=== PATIENT | female | born 1935 | race Caucasian/White ===

== ENCOUNTER 2018-01-30 09:40 | Outpatient (CLI) | payer MEDICARE, SELFPAY ==
[2018-01-30 13:03] LABS: HCT 38.8 % (36.0-46.0); HGB 12.5 g/dL (12.0-15.5); Mean Corp. HGB Concentration 32.2 g/dL (32.0-36.0); Mean Corpuscular Hemoglobin 29.9 pg (27.0-33.0); Mean Corpuscular Volume 92.8 fL (80-95); Mean Platelet Volume 10.3 fL (8.0-11.0); Platelet Count 310 x1000/uL (130-400); RBC 4.18 m/cumm (4.00-5.20); RBC Distribution Width 13.1 % (11.7-14.6); White Blood Cell Count 7.07 k/cumm (4.4-10.8)
[2018-01-30 14:00] LABS: ALT 26 U/L (12-78); AST 26 U/L (15-37); Albumin 3.5 g/dL (3.4-5.0); Alkaline Phosphatase 76 U/L (46-116); Anion Gap 6.8 mmol/L (3-11); BUN 14 mg/dL (7-18); Bilirubin, Total 0.4 mg/dL (0.2-1.0); CO2 30.2 mmol/L (21.0-32.0); CREATININE 0.77 mg/dL (0.55-1.02); Calcium 9.1 mg/dL (8.5-10.1); Chloride 101 mmol/L (98-107); Glucose 91 mg/dL (70-100); Potassium 4.5 mmol/L (3.5-5.1); Sodium 138 mmol/L (136-145); TSH (W/Ref FT4) 3.14 uIU/mL (0.358-3.74); Total Protein 6.7 g/dL (6.4-8.2); Vitamin B12 399 pg/mL (193-986)
[2018-01-31 13:58] LABS: Syphilis Serology (RPR) Negative (Negative)
== END 2018-01-30 10:00 ==
PROVIDERS: PCP Family Medicine; Visit Provider Family Medicine
DX: F32.9 Major depressive disorder, single episode, unspecified (principal); I10 Essential (primary) hypertension; R41.3 Other amnesia; G47.00 Insomnia, unspecified; E03.9 Hypothyroidism, unspecified
CPT/HCPCS: 36415; 80053; 85027; 82607; 84443; 86592

== ENCOUNTER 2018-07-21 10:12 | Day surgery (SDC) | payer MEDICARE, SELFPAY ==
--- NOTE | 2018-07-20 18:15 | POEE_ITS ---
History of Present Illness Chief Complaint: Progressive decreased vision, left eye Narrative: The patient is an 83-year-old lady with history of pseudoexfoliation and cataracts. She has previously undergone cataract surgery in the right eye in 2013. Postoperatively, she has regained uncorrected visual acuity of 20/25 in the right eye. She has previously undergone YAG laser capsulotomy with anterior capsule relaxing incisions in the right eye. She has now developed a moderate nuclear and cortical cataract in the left eye with visual acuity of 20/40. She now presents for cataract surgery in the left eye. NOTE: The Chief Complaint, HPI, Past Medical History, Past Surgical History, Family History, Social History, Medications, and complete Ophthalmic Exam with detailed Assessment and Plan have already been documented in the patient's outpatient ophthalmic record and are not covered again in detail here. [facility] Surgical History H/O arthroscopy of knee (Resolved) H/O cataract removal with insertion of prosthetic lens (Resolved) Arthroplasty of knee (02/21/09) Colonoscopy - IV Sedation (10/31/16) Colonoscopy - MAC (07/03/11) Extraction of cataract Family History Mother Stroke Heart disease Father No problems noted. Sister Cancer Sister Lung cancer Maternal Grandmother Stroke Son No problems noted. Son No problems noted. Social History Smoking/Tobacco Use Status: Former Tobacco Use Second Hand Exposure: No Alcohol Intake: never Drug use: Never Substance use type: does not use Household members: spouse What type of physical activity do you participate in: bicycling Duration: decline to answer Frequency: decline to answer Anh/Sikh: Zoroastrianism Special anh needs: No Seatbelt use: always Meds Home Medications Medication Instructions Recorded Confirmed Type Flexable Maximum Strength Cap 1 cap PO BID 07/24/12 07/16/18 History escitalopram oxalate [Lexapro] 10 mg PO DAILY #90 tab-cap 07/08/17 07/16/18 Rx levothyroxine 50 mcg PO DAILY #90 tab-cap 08/12/17 07/16/18 Rx losartan-hydrochlorothiazide 0.5 tab-cap PO DAILY #90 tab-cap 08/12/17 07/16/18 Rx donepezil 10 mg tablet 10 mg PO DAILY #30 tab 12/24/17 07/16/18 Rx estradiol 0.01% (0.1 mg/gram) 42.5 gm VG twice weekly PRN tube 12/24/17 07/16/18 History vaginal cream Allergies Allergy/AdvReac Type Severity Reaction Status Date / Time No Known Allergies Allergy Unverified 07/16/18 10:55 Exam OCULAR EXAM:: Most recent ocular examination is significant for best corrected visual acuity of 20/20 OD, 20/40 OS. Intraocular pressure is 17 OD, 16 OS. Extraocular motility is normal. Slit-lamp exam shows the right pupil dilating to 4 mm with severe iridodonesis. There is a PCIOL in the right eye, shifted slightly inferiorly. The posterior capsule is open with some anterior capsular contraction with relaxing incisions. In the left eye the pupil dilates to 5 mm with a 2+ nuclear and 1+ cortical cataract. 1+ pseudoexfoliation is present OS. Dilated funduscopic examination reveals disc cupping of 0.7 OD 0.3 OS with good color. The optic nerves have good perfusion and normal color. The retinal vasculature is normal without significant tortuosity or abnormality. The mac ulas are normal in appearance with normal contour and foveal reflex appropriate for age. The peripheral retina and vitreous are normal. BRIGHTNESS ACUITY TESTING (BAT):: Brightness acuity testing of the left eye off is 20/40. Low is 20/40. Medium is 20/40. High is 20/50. Assessment and Plan (1) Nuclear sclerotic cataract of left eye: Current visit: No Status: Acute Assessment: Visually significant cataract, left eye. Plan: Cataract extraction with intraocular lens implantation, left eye (2) Cortical cataract of left eye: Current visit: No Status: Acute Assessment: Visually significant cataract, left eye. Plan: Cataract extraction with intraocular lens implantation, left eye Note: NOTE:: The details of the planned surgery, including the risks, indications,limitations,expectations,outcome and possible complications were explained to the patient. The patient understands the complications including, but not limited to: infection, hemorrhage, posterior dislocation of the lens or nuclear fragments which may require the intervention of a vitreoretinal surgeon, possible loss of the eye, or from anesthetic complications. The patient has been made aware of the option of not having surgery, that vision following surgery may not be equal to that prior to surgery, and that the planned surgery may not achieve the intended results. Following this discussion, which the patient appeared to understand, the patient wishes to proceed with cataract surgery with lens implantation of the affected eye to improve and maximize vision.
[2018-07-21 10:38] VITALS: BP 151/73; PULSE 56; RESP 16; TEMP 36.4; O2SAT 96
[2018-07-21] MEDS: Tetracaine 0.5% 4 ML BTL OS ×4 (10:49→12:44)
[2018-07-21] MEDS: Tropicam./Phenyleph. (1/2.5%) 5 ML BTL OS ×3 (10:50→10:59)
--- NOTE | 2018-07-21 12:27 | W.PM.DSUDISC ---
Discharge Plan Disposition Patient Disposition: HOME Condition: Stable Discharge Details Attending Provider: Andrzej Jiménez Primary Care Provider: Nicki Caban Home Meds and New Rx's Prescriptions: No Action estradiol [Estrace] 0.01 % (0.1 mg/gram) cream 42.5 gm VG twice weekly PRNRF: 0 donepezil 10 mg tablet 10 mg PO DAILY Qty: 30 RF: 6 FLEXABLE MAXIMUM STRENGTH CAP 1 EACH capsule 1 cap PO BID RF: 0 escitalopram oxalate [Lexapro] 10 MG tablet 10 mg PO DAILY Qty: 90 RF: 11 levothyroxine 50 MCG tablet 50 mcg PO DAILY Qty: 90 RF: 12 losartan-hydrochlorothiazide 1 EACH tablet 0.5 tab-cap PO DAILY Qty: 90 RF: 12 cholecalciferol (vitamin D3) [Vitamin D3] 1,000 unit Capsule RF: 0 Discharge Instructions Stand Alone Forms: Post-op Topical Cataract, Press Ganey (DSU) Discharge Orders Discharge Orders: Discharge Order (Routine); Ordered 07/21/18 Ordered By: Andrzej Jiménez DS: Diagnosis Discharge Diagnosis (1) Nuclear sclerotic cataract of left eye: Status: Resolved (2) Cortical cataract of left eye: Status: Resolved (3) Status post cataract extraction and insertion of intraocular lens of left eye: Status: Chronic
--- NOTE | 2018-07-21 12:28 | W.PM.OP ---
Date of service: 07/21/18 Time of Service: 12:28 Operative Note PRE-OP DIAGNOSIS: Cataract, left eye, with poorly dilating pupil POST-OP DIAGNOSIS: same PROCEDURE: Cataract extraction by phacoemulsification with intraocular lens implantation, left eye, with pupillary expansion device SURGEON: Andrzej Jiménez ANESTHESIA: MAC and local (sub-tenon's anesthetic infiltration) ESTIMATED BLOOD LOSS: 0 PATHOLOGY: none sent COMPLICATIONS: None Patient was transported to: same day Patient's condition: stable Implants: [employer] / [employer] Tecnis [id number] Indications: Progressive decreased vision, left eye Procedure Description: CATARACT SURGERY OPERATIVE REPORT PREOPERATIVE DIAGNOSIS: 1. Nuclear/cortical cataract, left eye, with pseudoexfoliation 2. Poorly dilating pupil, left eye POSTOPERATIVE DIAGNOSIS: Same OPERATION: 1. Cataract extraction using phacoemulsification with posterior chamber intraocular lens implant, left eye. 2. Pupillary dilation and iris stabilization using Malyugin Ring IOL; IOL Glove Tagger/Model: [employer] / LILIANA Tecnis [id number] IOL Power: + 21.50 diopters IOL Serial Number: [id number] Optic Diameter: 6.0 mm Haptic/Overall Diameter: 13.00 mm PHACO INFO: Abdelrahman Centurion Vision System with OZil and Active Fluidics Cumulative Dispersed Energy (CDE): 10.45 seconds SURGEON: Andrzej Jiménez MD, GERALD ANESTHESIA: Monitored Anesthesia Care (MAC), with local sub-tenon's anesthetic infiltration COMPLICATIONS: None SPECIMENS: None INDICATIONS FOR PROCEDURE: The patient is an 83-year-old lady with history of pseudoexfoliation, right eye greater than left who has previously undergone cataract surgery in her right eye in 2013. She now presents with symptomatic nuclear and cortical cataract in the left eye. PROCEDURE: The correct surgical eye was identified and marked as the left eye and the pupil was dilated in the preoperative area using mydriatics, cycloplegics, and NSAIDS (except in aspirin allergic patients). The dilated pupil size was 4.5 mm. No sedation was used. The patient was brought to the operating room where cardiopulmonary monitoring was instituted and surgical time-out was performed, confirming the correct operative eye and IOL power. Topical anesthesia was administered and ophthalmic povidone-iodine 5% was instilled into the conjunctival fornices. Lidocaine gel was applied to the cornea and the jeff-ocular area was prepped with Betadine 10% solution and draped in the usual sterile fashion for intraocular surgery, including an aperture drape. A Tegaderm transparent film dressing was cut in half and used to cover the lashes and lid margins. Care was taken to sequester the lashes and lid margins under the Tegaderm dressing. A lid speculum was placed between the lids of the operative eye and the Ellie-Davon operating microscope was maneuvered into position. Renita scissors were then used to make a conjunctival buttonhole approximately 6mm posterior to the limbus in the inferonasal quadrant. Blunt dissection was carried out to expose bare sclera, and a blunt-tipped sub-tenon?s anesthesia cannula was introduced and passed posteriorly along the globe where non-preserved plain lidocaine was injected into posterior sub-Tenon?s space. A sideport knife was used to make a paracentesis port superiorly/superiortemporally. The anterior chamber was filled with Healon GV. A 2.4mm keratome knife was used to create a half-thickness groove at the limbus and then to construct a three-plane near-clear corneal tunnel extending 2.0mm into clear cornea at the temporal position. A 7.0 mm Malyugin Ring was then inserted into the pupillary space and engaged with the Kuglen hook. A flap was raised on the anterior capsule and capsulorhexis forceps were used to complete a continuous curvilinear capsulorhexis of 5.0 mm. Capsulorhexis was challenging, as the patient's eye moved constantly, even while fixating with a second instrument. Balanced salt solution was then used to perform cortical cleaving hydrodissection and nuclear hydrodelineation until the lens could be freely rotated within the capsular bag. The lens nucleus was then disassembled and removed within the capsular bag and iris plane using phacoemulsification. Residual cortical material was removed using the 45-degree angled silicone I/A tip with 0.3mm port. The posterior capsule was carefully polished to remove as much residual lens epithelial cells as safely possible. The underside of the anterior capsule was polished as well to remove as many lens epithelial cells as possible, to reduce the chance of capsular phimosis. The capsular bag was then inflated and the anterior chamber deepened with viscoelastic. The lens implant described above was inserted into the capsular bag using the LILIANA [place] [employer] [place] Injector. A Kuglen hook was used to dial the IOL into position. The Malyugin Ring was removed in the reverse order of its insertion. Residual viscoelastic was then removed first from posterior to the IOL, then from the anterior chamber using the I/A handpiece. The lens implant was noted to center nicely within the capsular bag. The incisions were stromally hydrated, and the anterior chamber was reformed using BSS. Then 0.4cc of moxifloxacin 1.5mg/ml were injected into the capsular bag and anterior chamber. The incisions were checked with a Weck spear and found to be secure. Several drops of ophthalmic povidone-iodine 5% were then applied to the eye followed by two drops of Imprimis combination gatifloxacin/dexamethasone solution. The drapes were removed and a clear plastic protective eye shield was placed over the eye. The patient was then returned to [facility] in stable condition.
[2018-07-21] MEDS: Povidone-Iodine Ophth 30 ML BTL (12:44)
[2018-07-21] MEDS: Lidocaine 2% Jelly 6 ML SYR (12:44)
[2018-07-21] MEDS: Balanced Salt Soln.-PLUS 500 ML BAG (12:49)
[2018-07-21] MEDS: Lidocaine 1% Pres-Free 5 ML VIAL (12:50)
== END 2018-07-21 13:50 | disposition home or self-care (01) ==
PROVIDERS: PCP Family Medicine; Visit Provider Ophthalmology
PROC: (CPT 66982; principal; 2018-07-21 13:30)
DX: H25.812 Combined forms of age-related cataract, left eye (principal); H57.09 Other anomalies of pupillary function; I10 Essential (primary) hypertension
CPT/HCPCS: 66982; V2632

== ENCOUNTER 2018-12-04 00:59 | Outpatient (CLI) | payer MEDICARE, SELFPAY ==
[2018-12-04 10:45] LABS: ALT 19 U/L (14-59); AST 20 U/L (15-37); Albumin 3.4 g/dL (3.4-5.0); Alkaline Phosphatase 83 U/L (46-116); Anion Gap 8.4 mmol/L (3-11); BUN 13 mg/dL (7-18); Bilirubin, Total 0.4 mg/dL (0.2-1.0); CO2 29.6 mmol/L (21.0-32.0); CREATININE 0.78 mg/dL (0.55-1.02); Calcium 9.1 mg/dL (8.5-10.1); Chloride 101 mmol/L (98-107); Glucose 90 mg/dL (70-100); Potassium 4.7 mmol/L (3.5-5.1); Sodium 139 mmol/L (136-145); TSH (W/Ref FT4) 8.31 uIU/mL (0.36-3.74); Total Protein 6.7 g/dL (6.4-8.2)
[2018-12-04 11:18] LABS: FREE T4 1.01 ng/dL (0.76-1.46)
== END 2018-12-04 01:19 ==
PROVIDERS: PCP Family Medicine; Visit Provider Family Medicine
DX: I10 Essential (primary) hypertension (principal)
CPT/HCPCS: 36415; 80053; 84439; 84443

== ENCOUNTER 2020-02-01 22:11 | Outpatient (REF) | payer MEDICARE, SELFPAY ==
[2020-02-01 22:23] LABS: ALT 19 U/L (14-59); AST 20 U/L (15-37); Albumin 3.7 g/dL (3.4-5.0); Alkaline Phosphatase 83 U/L (46-116); Anion Gap 5.5 mmol/L (3-11); BUN 16 mg/dL (7-18); Bilirubin, Total 0.4 mg/dL (0.2-1.0); CO2 30.5 mmol/L (21.0-32.0); CREATININE 0.84 mg/dL (0.55-1.02); Chloride 101 mmol/L (98-107); Glucose 81 mg/dL (74-106); Potassium 4.3 mmol/L (3.5-5.1); Sodium 137 mmol/L (136-145); TSH (W/Ref FT4) 12.24 uIU/mL (0.36-3.74); Total Protein 7.3 g/dL (6.4-8.2)
[2020-02-01 22:42] LABS: FREE T4 0.99 ng/dL (0.76-1.46)
== END 2020-02-01 22:31 ==
LOC: LBN 22:11
PROVIDERS: PCP Family Medicine; Visit Provider Family Medicine
DX: F41.9 Anxiety disorder, unspecified (principal); E03.9 Hypothyroidism, unspecified; F03.90 Unspecified dementia, unspecified severity, without behavioral disturbance, psychotic disturbance, mood disturbance, and anxiety; I10 Essential (primary) hypertension
CPT/HCPCS: 80053; 84439; 84443

== ENCOUNTER 2020-05-18 02:15 | Outpatient (CLI) | payer MEDICARE, SELFPAY ==
--- NOTE | 2020-05-18 10:20 | DI.RAD_ITS ---
EXAM: XR CHEST 2V PA LATERAL CLINICAL HISTORY: SOB, R06.02 TECHNIQUE: 2D digital imaging was performed. COMPARISON: CR CHEST 2 VIEWS PA,LAT from 07/17/2016 FINDINGS: Heart size is normal. A hiatal hernia is again noted. There is minimal linear scarring on the right .. The lungs are otherwise clear. IMPRESSION: No acute pulmonary findings. Small hiatal hernia. DATA REPOSITORY: RADIATION DOSE DELIVERED:
== END 2020-05-18 02:16 ==
LOC: DI 02:16
PROVIDERS: PCP Family Medicine; Visit Provider Nurse Practitioner
DX: K44.9 Diaphragmatic hernia without obstruction or gangrene (principal); R06.02 Shortness of breath
CPT/HCPCS: 71046

== ENCOUNTER 2021-02-23 16:57 | Outpatient (REF) | payer MEDICARE, SELFPAY ==
[2021-02-23 19:51] LABS: TSH (W/Ref FT4) 19.32 uIU/mL (0.36-3.74)
== END 2021-02-23 16:58 | disposition home or self-care (01) ==
LOC: LBN 16:57
PROVIDERS: PCP Family Medicine; Visit Provider Family Medicine
DX: F41.9 Anxiety disorder, unspecified (principal)
CPT/HCPCS: 84439; 84443

== ENCOUNTER 2022-01-09 11:12 | Outpatient (REF) | payer MEDICARE, SELFPAY ==
[2022-01-09 12:55] LABS: Bilirubin Negative (Negative); Blood Negative (Negative); Clarity Cloudy (Clear); Glucose Negative (Negative); Ketones Negative (Negative); Leukocyte Esterase Trace (Negative); Nitrite Negative (Negative); Urobilinogen 0.2 EU/dL (Up TO 0.2); pH 8.5 (5-8)
[2022-01-09 13:39] LABS: Epithelial Cells Few HPF (Negative); Other Cells Negative (Negative); RBC Negative HPF (0-2)
[2022-01-09 13:40] LABS: Bacteria Few HPF (Negative)
[2022-01-09 13:41] LABS: C & S Indicated? No; Casts Negative LPF (Negative); Crystals Moderate Amorphous HPF (Negative); Mucus Negative (Negative)
== END 2022-01-09 11:13 | disposition home or self-care (01) ==
LOC: LBN 11:12
PROVIDERS: PCP Family Medicine; Visit Provider Family Medicine
DX: R30.0 Dysuria (principal)
CPT/HCPCS: 81003; 81015